=== PATIENT | male | born 1985 | race Caucasian/White ===

== ENCOUNTER → 2017-01-12 | Outpatient (CLI) | payer BC ==
[~2017-01-12] MED LIST: AMOX-351 PO; AMPH10CA PO; AMPH20TA3 PO; FINA1TAB18; GADOBUTROL 10mMol/10ml INJECTION IV ONE; NORMAL SALINE 50 ML IV ONE; SALINE FLUSH 10ml SYRINGE ONE
--- NOTE | 2017-01-12 09:43 | DI ---
Indication: ITS.REASON: S19.9XXA; M54.2 CERVICALGIA; R11.2 NAUSEA WITH VOMITING PROCEDURE: MRA HEAD WO CONTRAST: Encounter: Initial Comparison: None Technique: MRA imaging of the head without contrast was acquired. Maximum intensity projection (MIP) reformatted images were produced. 3-dimensional volume rendered imaging of the [place] of [place] was performed by the technologist on a dedicated workstation. Findings: MRA head: The intracranial portions of the vertebral arteries, internal carotid arteries, and their major branches show no significant stenosis or other vascular anomaly. No aneurysms or vascular malformations are evident. Right posterior communicating artery noted incidentally. Impression: Normal exam. No evidence of aneurysm or flow-limiting arterial stenosis. .
--- NOTE | 2017-01-12 09:52 | DI ---
Indication: ITS.REASON: S19.9XXA; M54.2 CERVICALGIA; R11.2 NAUSEA WITH VOMITING PROCEDURE: MRA NECK W/WO CONTRAST: Comparison: None Technique: MRA imaging of the neck with and without contrast was acquired. Maximum intensity projection (MIP) reformatted images were produced. Contrast: 10 mL Gadavist Findings: The carotid bifurcations are widely patent bilaterally with normal flow-related enhancement within the common carotid, internal carotid, and external carotid arteries. The vertebral arteries are normal in size without evidence of significant stenosis. Impression: Unremarkable MRA of the neck with and without contrast. No stenosis by NASCET criteria. .
== END ==
LOC: IMA 07:21
PROVIDERS: ATTEND Physician Assistant Medical
DX: M54.2 Cervicalgia (principal); R11.2 Nausea with vomiting, unspecified
CPT/HCPCS: 70546; 70549; A9585; J7050